=== PATIENT | female | born 1975 | race Two or more races ===

== ENCOUNTER 2016-10-18 14:43 | Emergency (ER) | payer OTHER ==
--- NOTE | ~2016-10-18 | CR72 ---
[facility] A Service of [facility] RADIOLOGY TEXT RESULTS PATIENT: JLUIAN MC LOCATION: SED : 71 UNIT #: [id number] AGE: [address]: Santhosh Webb MD SEX: F ORDER DR: [id number] [place] [id number] E MR#: [id number] Acc #: [id number] NAME: JULIAN CM : 1975 SEX: F STUDY DATE/TIME: 10/18/2016 15:32 UNIT: SED ROOM: STUDY DESCRIPTION: CR Chest Single View Portable Attending Physician: Santhosh Webb M.D. Ordering Physician: Santhosh Webb M.D. Primary Care Physician: Terrie Cool Aprn MEDICAL IMAGING REPORT This report is preliminary unless electronic signature is present. EXAM Portable chest. INDICATION Asthma for 3 weeks. This been getting worse. The patient was referred to the ER by her doctor. Heart size is within normal limits. The right costophrenic angles excluded from the radiograph, no definite pneumothorax is identified, certainly no effusion is seen on the left although again the right lung base is not well assessed. No acute infiltrates are noted. There is probably some mild bibasilar atelectasis right greater than left. Dictated by... Renetta Chaves M.D. THIS IS AN ELECTRONICALLY VERIFIED REPORT Renetta Chaves M.D. at 10/19/2016 7:21 AM AFF/ea TD: 10/18/2016 23:06 JOB #: [id number] MEDICAL IMAGING REPORT Page 1 of 1
[2016-10-18] MEDS ORDERED: ADVAIR INHALER INH (14:46)
[2016-10-18] MEDS ORDERED: ALBUTEROL NEB INH (14:47)
[2016-10-18] MEDS ORDERED: DULERA INHALER INH (14:47)
[2016-10-18] MEDS ORDERED: LEVOCETIRIZINE D5 MG PO (14:48)
[2016-10-18] MEDS ORDERED: SINGULAIR PO (14:48)
[2016-10-18] MEDS ORDERED: PROAIR INHALER INH (14:49)
[2016-10-18] MEDS ORDERED: ZYRTEC PO (14:49)
[2016-10-18] MEDS ORDERED: NASONEX (14:49)
== END 2016-10-18 16:54 | disposition home or self-care (01) ==
LOC: SED 14:43
DX: J45.909 Unspecified asthma, uncomplicated (principal); J06.9 Acute upper respiratory infection, unspecified; Z98.51 Tubal ligation status; Z79.899 Other long term (current) drug therapy
CPT/HCPCS: 71010; 94640; 99284